=== PATIENT | male | born 1985 ===

== ENCOUNTER 2017-02-10 10:37 | Emergency (ER) | payer MEDICAID ==
[2017-02-10 10:40] VITALS: BMI 26.2
[2017-02-10 10:42] VITALS: BP 128/76; PULSE 79; RESP 20; TEMP 97; O2SAT 99
--- NOTE | 2017-02-10 11:55 | ED PDOC ---
HPI: General Adult Time Seen by Provider: 02/10/17 10:46 Chief Complaint (Nursing): Back Pain History Per: Patient Additional Complaint(s): Pt. states for the past 4 days he's had atraumatic pain and stiffness to the R index finger, all fingers of L hand, and lower back. Pain is non-radiating. Pain is worsened with movement. Denies hematuria, dysuria, trauma, numbness, tingling, weakness, abdominal pain, N/V/D, incontinence, saddle paresthesias. 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; takes ASA daily) Denies: Chronic Kidney Disease - Family History Family History: States: No Known Family Hx - Immunization History Hx Tetanus Toxoid Vaccination: No Hx Influenza Vaccination: No Hx Pneumococcal Vaccination: No - Home Medications Home Medications: Ambulatory Orders Medication Instructions Recorded Aspirin [Aspirin EC] 1 tab PO DAILY #30 ect 07/06/14 Permethrin 120 ml TP ONCE #1 liquid 03/12/16 hydrOXYzine HCl [Atarax] 25 mg PO Q6H PRN #15 tab 03/12/16 Cyclobenzaprine [Cyclobenzaprine 10 mg PO Q8 PRN #30 tab 02/10/17 HCl] - Allergies Allergies/Adverse Reactions: Allergies Allergy/AdvReac Type Severity Reaction Status Date / Time No Known Allergies Allergy Verified 10/03/14 07:31 Review of Systems ROS Statement: Except As Marked, All Systems Reviewed And Found Negative Musculoskeletal: Positive for: Back Pain Physical Exam - Physical Exam Appears: Positive for: Well, Non-toxic, No Acute Distress Skin: Positive for: Normal Color, Warm. Negative for: Rash Cardiovascular/Chest: Positive for: Regular Rate, Rhythm Respiratory: Positive for: CNT, Normal Breath Sounds Pulses-Radial (L): 2+ Pulses-Radial (R): 2+ Gastrointestinal/Abdominal: Positive for: Normal Exam, Soft. Negative for: Tenderness Back: Positive for: Normal Inspection. Negative for: L CVA Tenderness, R CVA Tenderness Extremity: Positive for: Normal ROM, Capillary Refill (< 2 seconds of all fingertips), Other (b/l hands including fingers with tenderness, swelling, warmth, erythema, skin changes, or deformity) - ECG O2 Sat by Pulse Oximetry: 99 - Progress ED Course And Treament: R and L hand: DJD; no fx LS spine x-ray: no bony abnormality Disposition - Clinical Impression Clinical Impression: Arthralgia, Low back pain - Patient ED Disposition Is Patient to be Admitted: No - Disposition [facility]errals: [facility] [place] [Outside] [facility] [Outside] Disposition: Routine/Home Disposition Time: 11:58 Condition: STABLE Additional Instructions: Take Tylenol at home for pain. Prescriptions: Cyclobenzaprine [Cyclobenzaprine HCl] 10 mg PO Q8 PRN #30 tab PRN Reason: Muscle Spasm Instructions: Acute Low Back Pain (ED), Arthralgia (ED) Forms: [employer] ([place]ian) Print Language: POLISH
--- NOTE | 2017-02-10 14:50 | RAD ---
PROCEDURE: Radiographs of the Lumbar Spine. HISTORY: pain COMPARISON: No prior. FINDINGS: BONES: Lumbar spine straightening. No significant appearing no listhesis No fracture. DISC SPACES: L5-S1 disc space is narrowed OTHER FINDINGS: L5-S1 minimal facet hypertrophic changes in this young 31-year-old patient. Tiny 1 mm bilateral hemipelvic phleboliths noted. IMPRESSION: Lumbar spine straightening. L5-S1 disc height decrease with trace anterior spondylotic ridging here. L5-S1 minimal facet hypertrophic arthrosis. Findings noted in this 31-year-old patient
--- NOTE | 2017-02-10 14:52 | RAD ---
PROCEDURE: Right Hand Radiographs. HISTORY: pain COMPARISON: None. FINDINGS: BONES: Normal. No fracture. JOINTS: Normal. No osteoarthritic changes. SOFT TISSUES: Normal. OTHER FINDINGS: None. IMPRESSION: Normal right hand radiographs.
--- NOTE | 2017-02-10 14:53 | RAD ---
PROCEDURE: Left Hand Radiographs. HISTORY: pain COMPARISON: None. FINDINGS: BONES: Normal. No fracture. JOINTS: Normal. No osteoarthritic changes. SOFT TISSUES: Normal. OTHER FINDINGS: None. IMPRESSION: Normal left hand radiographs.
== END 2017-02-10 12:20 | disposition home or self-care (01) ==
LOC: H.ER 10:37
DX: M54.5 Low back pain (principal); Z79.82 Long term (current) use of aspirin; Z86.73 Personal history of transient ischemic attack (TIA), and cerebral infarction without residual deficits